=== PATIENT | female | born 1990 | race Caucasian/White ===

== ENCOUNTER 2021-01-28 14:01 | Emergency (ER) | payer MEDICAID, SELFPAY ==
--- NOTE | 2021-01-28 14:02 | ED.GENADUL_ITS ---
Discharge Plan Disposition Patient Disposition: HOME Condition: Stable Discharge Details Clinical Impression: Fatigue, Bilateral hand swelling Primary Care Provider: Unknown,Unknown ED Provider: Kimi Pena Home Meds and New Rx's Prescriptions: New prednisone 20 mg tablet See Rx Instructions .ROUTE .COMPLEX Qty: 18 RF: 0 No Action multivitamin [Multi-Daily] Tablet 1 tab PO BOLUSMAXRATE RF: 0 Discharge Instructions Instructions: Arthralgia (ED), Fatigue (ED) Additional Instructions: Drink plenty of fluids and get plenty of rest. Alternate tylenol and motrin as needed and directed for pain. Your prescription has been sent electronically to your pharmacy. Call the pharmacy to make sure your prescription is ready before pickup. Take the prescription as directed. Follow-up with your scheduled appointment with your primary care doctor next week and for referral to rheumatology for further evaluation of your chronic hand redness and swelling. Return to the emergency department with any worsening or new concerning symptoms. Discharge Data Discharge Date/Time-TO BE ENTERED AT DEPARTURE: 01/28/21 16:29 Discharge Physician: Kimi Pena Medical Decision Making 30-year-old female with a history of hep C presents to the ED with complaint of fatigue and red and swollen hands for the past 2 years, worse over the past She is currently in a [employer] [facility] program for the past 2 months. Last fentanyl use 2 months ago, Patient appears comfortable and nontoxic. Her vitals are within normal limits. Her bilateral distal hands and all 10 fingers appear warm to touch with mild to moderate edema and erythema. She has normal capillary refill and her distal pulses are intact. She denies any complaint of pain or fever and do not suspect infection. She denies any itching or any new exposures so does not appear allergic. Consider possible vasculitis, rheumatologic, or other inflammatory syndrome. We will check basic screening labs, urinalysis, urine and give a dose of oral steroids. Discussed with patient that if her work-up is negative, she likely should have follow-up with a investigative reporter for further evaluation. Labs reviewed and unremarkable. ESR and CRP negative. TSH added but patient feels much better and feels good to go home and does not want to wait for TSH result. The swelling and redness in her hands has actually improved. Her urinalysis no ketones but no evidence of infection. Urine test negative. Prescription for prednisone sent electronically to her pharmacy. She has an appointment with a primary care doctor next week. She is advised to follow-up with them for reevaluation and for referral to rheumatology if her symptoms p ersist. Advised to follow up with the primary care doctor for re-evaluation. Usual and customary return precautions given prior to discharge. TSH resulted and within normal limits. Medical Records Medical records reviewed: Yes I reviewed the patient's medical records. Lab Data Lab results reviewed: Yes I reviewed the patient's lab results. Labs: Laboratory Tests Range/Units 01/28/21 01/28/21 01/28/21 14:20 15:15 15:15 WBC (4.4-10.8) 10^3/uL 7.19 RBC (3.93-5.22) 10^6/uL 4.57 Hgb (11.2-15.7) g/dL 13.6 Hct (36.0-46.0) % 40.1 MCV (80-95) fL 87.7 MCH (27.0-33.0) pg 29.8 MCHC (32.0-36.0) % 33.9 RDW (11.7-14.6) % 13.0 Plt Count (130-400) 10^3/uL 260 MPV (8.0-11.0) fL 8.9 Immature Gran % 0.4 Neutrophils % 67.8 Lymphocytes % 24.2 Monocytes % 5.8 Eosinophils % 1.1 Basophils % 0.7 Nucleated RBC % % 0 Absolute Neutrophils (1.2-6.7) 10^3/uL 4.87 Absolute Lymphocytes (1.2-3.4) 10^3/uL 1.74 Absolute Monocytes (0.1-0.8) 10^3/uL 0.42 Absolute Eosinophils (0.0-0.7) 10^3/uL 0.08 Absolute Basophils (0.0-0.2) 10^3/uL 0.05 ESR (0-20) mm//hr Sodium (136-145) mmol/L 140 Potassium (3.5-5.1) mmol/L 3.7 Chloride (98-107) mmol/L 104 Carbon Dioxide (21.0-32.0) mmol/L 29.4 Anion Gap (3-11) mmol/L 6.6 BUN (7-18) mg/dL 15 Creatinine (0.55-1.02) mg/dL 1.0 Estimated GFR/1.73 m2 (mL/min/1.73m2) >= 60.00 Glucose (74-106) mg/dL 93 Calcium (8.5-10.1) mg/dL 8.9 Total Bilirubin (0.2-1.0) mg/dL 0.3 AST (15-37) U/L 21 ALT (14-59) U/L 43 Alkaline Phosphatase (46-116) U/L 48 C-Reactive Protein (0.0-0.3) mg/dL Total Protein (6.4-8.2) g/dL 7.8 Albumin (3.4-5.0) g/dL 3.8 Lipase (73-393) U/L 146 Urine Color (Yellow) Yellow Urine Clarity (Clear) Clear Urine pH (5-8) 5.0 Ur Specific Maurice (1.005-1.025) >= 1.030 H Urine Protein (Negative) mg/dL Negative Urine Ketones (Negative) mg/dL Trace H Urine Blood (Negative) Negative Urine Nitrite (Negative) Negative Urine Bilirubin (Negative) Negative Urine Urobilinogen (Up TO 0.2) EU/dL 0.2 Ur Leukocyte Esterase (Negative) Negative Urine Glucose (Negative) mg/dL Negative Range/Units 01/28/21 01/28/21 15:15 15:15 WBC (4.4-10.8) 10^3/uL RBC (3.93-5.22) 10^6/uL Hgb (11.2-15.7) g/dL Hct (36.0-46.0) % MCV (80-95) fL MCH (27.0-33.0) pg MCHC (32.0-36.0) % RDW (11.7-14.6) % Plt Count (130-400) 10^3/uL MPV (8.0-11.0) fL Immature Gran % Neutrophils % Lymphocytes % Monocytes % Eosinophils % Basophils % Nucleated RBC % % Absolute Neutrophils (1.2-6.7) 10^3/uL Absolute Lymphocytes (1.2-3.4) 10^3/uL Absolute Monocytes (0.1-0.8) 10^3/uL Absolute Eosinophils (0.0-0.7) 10^3/uL Absolute Basophils (0.0-0.2) 10^3/uL ESR (0-20) mm//hr 7 Sodium (136-145) mmol/L Potassium (3.5-5.1) mmol/L Chloride (98-107) mmol/L Carbon Dioxide (21.0-32.0) mmol/L Anion Gap (3-11) mmol/L BUN (7-18) mg/dL Creatinine (0.55-1.02) mg/dL Estimated GFR/1.73 m2 (mL/min/1.73m2) Glucose (74-106) mg/dL Calcium (8.5-10.1) mg/dL Total Bilirubin (0.2-1.0) mg/dL AST (15-37) U/L ALT (14-59) U/L Alkaline Phosphatase (46-116) U/L C-Reactive Protein (0.0-0.3) mg/dL < 0.05 Total Protein (6.4-8.2) g/dL Albumin (3.4-5.0) g/dL Lipase (73-393) U/L Urine Color (Yellow) Urine Clarity (Clear) Urine pH (5-8) Ur Specific Maurice (1.005-1.025) Urine Protein (Negative) mg/dL Urine Ketones (Negative) mg/dL Urine Blood (Negative) Urine Nitrite (Negative) Urine Bilirubin (Negative) Urine Urobilinogen (Up TO 0.2) EU/dL Ur Leukocyte Esterase (Negative) Urine Glucose (Negative) mg/dL HPI General Mode of arrival: ambulatory . Date/Time Provider Initiated Documentation: 01/28/21 14:02 . Limitations to Documentation: no limitations . Information obtained by: patient . HPI Narrative: Patient is a 30-year-old female with a former history of opiate use currently in the remission for the past 2 months presents for fatigue and bilateral hand redness, swelling and warmth to the touch over the past 2 years, worse over the past week. Patient states she is currently in a [employer] drug program for the past few months to help with her former drug abuse. She states she last used fentanyl 2 months ago. She denies any current drug or alcohol or tobacco use. She states she has had swelling, redness and feeling of heat in her hands for the past 2 years, that was usually worse around the time of her drug use but has been worse for the past week. Denies any recent drug use. She also states she has had issues with fatigue over the past 2 years but states it has also been worse for the past week. She states in general she does not sleep well and can sleep anywhere between 2 to 6 hours per night. She states she slept only 2 hours last night. She admits to history of bladder and kidney infections and was last treated with antibiotics a few years ago. She denies any fever, headache, neck pain, chest pain, abdominal pain, shortness of breath, new medications, control, or injury. Related Data Home Medications Medication Instructions Recorded Confirmed multivitamin [Multi-Daily] 1 tab PO BOLUSMAXRATE 01/28/21 01/28/21 prednisone See Rx Instructions .ROUTE 01/28/21 .COMPLEX #18 tab Previous Rx's Medication Instructions Recorded prednisone See Rx Instructions .ROUTE 01/28/21 .COMPLEX #18 tab Allergies Allergy/AdvReac Type Severity Reaction Status Date / Time No Known Allergies Allergy Unverified 01/28/21 15:26 Review of Systems All systems reviewed & are unremarkable except as noted in HPI and below Constitutional Constitutional: Reports as per HPI, Denies chills, Reports fatigue and Denies fever(s) Eyes Eyes: Denies blurry vision ENT Ears, Nose, Mouth, and Throat: Denies dizziness, Denies sore throat and Denies throat swelling Cardiovascular Cardiovascular: Denies chest pain and Denies dyspnea Respiratory Respiratory: Denies cough and Denies dyspnea Gastrointestinal Gastrointestinal: Denies abdominal pain, Denies diarrhea and Denies vomiting Genitourinary Genitourinary: Denies hematuria and Denies dysuria Musculoskeletal Musculoskeletal: Denies back pain and Denies numbness Integumentary/Breasts Skin/Breast: Denies lesions, Denies rash and Reports other (Redness and swelling of hands) Neurologic Neurologic: Denies dizziness, Denies localized weakness and Denies numbness Endocrine Endocrine: Reports fatigue Allergic/Immunologic Allergic/Immunologic: Denies throat swelling [facility] Medical History (Updated 01/28/21 @ 15:22 by Kimi Pena DO) Narcotic abuse in remission Surgical History (Updated 01/28/21 @ 14:54 by Kimi Pena DO) No significant past surgical history Social History Smoking/Tobacco Use Status: Former Tobacco Use Smoking risk assessment performed?: Yes Alcohol Intake: never Drug use: Current Sobriety Do you feel safe at home: Yes Do you feel safe in your relationship?: Yes Exam Const General: cooperative and no acute distress [facility] Head: normal to inspection Face and sinus: normal facial exam Eyes General: appearance normal, both eyes and all related structures Pupils: PERRL EOM: EOM intact bilaterally Neck Neck: normal visual inspection and No submandibular swelling Lymphatic: no lymphadenopathy noted Chest Chest: normal inspection of the chest and no tenderness Resp Effort & Inspection: normal respiratory effort and able to speak in complete sentences Auscultation: clear to auscultation bilaterally Cardio Rate: regular rate Rhythm: regular rhythm GI Inspection: normal to inspection Palpation: soft, not firm, not rigid and nontender Auscultation: normal bowel sounds Skin General skin exam: no rashes or lesions noted Neuro General: patient alert, patient awake and patient oriented x3 Cognition: normal cognition Speech: speech normal Motor: muscle tone normal throughout Sensory Exam: no sensory deficits noted Extrem General: capillary refill normal Hand/finger images: 1. Erythema, edema, hot to touch of distal hands and fingers b/l 2. Erythema, edema, hot to touch of distal hands and fingers b/l Other: Bilateral radial and ulnar pulses intact Psych Appearance: grossly normal Mental Status: mental status grossly normal Speech and Movement: speech and movement normal Affect: normal affect
[2021-01-28 14:10] VITALS: BP 106/63; PULSE 83; RESP 18; TEMP 36.5; O2SAT 97
[2021-01-28 14:27] LABS: Bilirubin Negative (Negative); Blood Negative (Negative); Clarity Clear (Clear); Glucose Negative (Negative); Ketones Trace mg/dL (Negative); Leukocyte Esterase Negative (Negative); Nitrite Negative (Negative); Specific Gravity >= 1.030 (1.005-1.025); Urobilinogen 0.2 EU/dL (Up TO 0.2)
[2021-01-28] MEDS: predniSONE 20 MG TAB 60 MG PO ×2 (14:57)
[2021-01-28] MEDS: Normal Saline 1,000 ML 1000 ML IV (15:22)
[2021-01-28 15:31] LABS: Abs Immature Grans 0.03 10^3/uL (0.0-0.06); Absolute Basophil Count 0.05 10^3/uL (0.0-0.2); Absolute Eosinophil Count 0.08 10^3/uL (0.0-0.7); Absolute Lymphocyte Count 1.74 10^3/uL (1.2-3.4); Absolute Monocyte Count 0.42 10^3/uL (0.1-0.8); Absolute Neutrophil Count 4.87 10^3/uL (1.2-6.7); Basophils % 0.7; Eosinophils % 1.1; HCT 40.1 % (36.0-46.0); HGB 13.6 g/dL (11.2-15.7); Immature Grans % 0.4; Lymphocytes % 24.2; MCH 29.8 pg (27.0-33.0); MCHC 33.9 % (32.0-36.0); MCV 87.7 fL (80-95); MPV 8.9 fL (8.0-11.0); Monocytes % 5.8; Neutrophils % 67.8; Nucleated RBC 0 %; Platelet Count 260 10^3/uL (130-400); RBC 4.57 10^6/uL (3.93-5.22); RDW-SD 41.5 fL; WBC 7.19 10^3/uL (4.4-10.8)
[2021-01-28 15:33] LABS: ESR 7 mm//hr (0-20)
[2021-01-28 15:45] LABS: ALT 43 U/L (14-59); AST 21 U/L (15-37); Albumin 3.8 g/dL (3.4-5.0); Alkaline Phosphatase 48 U/L (46-116); Anion Gap 6.6 mmol/L (3-11); BUN 15 mg/dL (7-18); Bilirubin, Total 0.3 mg/dL (0.2-1.0); C-Reactive Protein < 0.05 mg/dL (0.0-0.3); CO2 29.4 mmol/L (21.0-32.0); Calcium 8.9 mg/dL (8.5-10.1); Chloride 104 mmol/L (98-107); Glucose 93 mg/dL (74-106); Lipase 146 U/L (73-393); Potassium 3.7 mmol/L (3.5-5.1); Sodium 140 mmol/L (136-145); Total Protein 7.8 g/dL (6.4-8.2)
[2021-01-28 16:40] LABS: TSH (W/Ref FT4) 1.11 uIU/mL (0.36-3.74)
== END 2021-01-28 16:29 | disposition home or self-care (01) ==
PROVIDERS: Emergency Provider Physician Assistant
DX: R53.83 Other fatigue (principal); R60.0 Localized edema; L53.9 Erythematous condition, unspecified
CPT/HCPCS: 36415; 80053; 81025; 83690; 85652; 96360; 99284; 81003; 84443; 85025; 86140; J7512